=== PATIENT | male | born 1970 | race Caucasian/White ===

== ENCOUNTER 2023-05-11 08:30 | Outpatient (AMB) | payer OTHER, SELFPAY ==
--- NOTE | 2023-05-11 08:34 | MHC.OFFVISWM ---
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 TBWL is 79 lb sor 24.9%.Pt has [employer] insurance which is not accepted by [facility] and Dr Monson approved patient having follow up care. No nausea, emesis or reflux. Float Builder is Dr Kennedy at [facility], next appt May 25, 2023 Works various shifts 4d/ week. Alternates between night and day shifts. Average sleep per night is 6-8 hours. Meal plan: 9am - Isopure - 20 grams with PB powder (9 grams) with water, 16 oz 20 minutes 12 - 1pm - Oikos yogurt AND Quest bar 5 pm - 5 - chicken wings with skin air fired no sauce, vegetables daily 5-6 oz. water after food If gets hungry has 4 oz unsalted peanuts or trail mix No ETOH fro 6 months, no tobacco or marijuana Exercise - has a home gym - cardio 3d/week. Treadmill - ? speed, incline 8, ? calories over 30 - [address] - 4-5 d/ week. UE - 45 lbs - 135 lbs, Abds - crunches and twists, LE - 120 lbs. 6-7 reps 4 sets. [facility] Medical History (Updated 05/11/23 @ 08:59 by Summer Bhakta PA-C) V tach Assessment & Plan Assessment & Plan (1) S/P laparoscopic sleeve gastrectomy: Comment: 2022,[facility] Code(s): Z98.84 - Bariatric surgery status Plan: Pt is 6 months s/p LSG at an outside hospital, lost his insurance. His path report revealed a stomach specimen of only 3.5 x 4.5 x 3cms with irregular staple line. , Dr Britton wants to schedule EGD to evaluate his stomach size. He is eating large quantities of food at meals with minimal restriction. We discussed that we will decrease his portion sizes to have 100 gram protein per day. Studies form October 2022: ECG - NSR, possible LAD, borderline CBC, BMP, Pt/INR normal ranges CXR - NAD New meal plan: 9am - Isopure with PB powder and 12 oz water - over one hour 12 pm - Yogurt OR BAR 3pm- another shake 6pm- 4 oz (8 forks) of lean protein and 6 forks of vegetable New Exercise plan- He should increase his cardio and change his weight routien to burn more fat and conditioning. cardio - 4d/week - 500 calories. Treadmill - 3.0, 2-[address] - 3d/week - 15reps , 3 sets of each- decrease weight by 30%. Pt will text me weekly weights and progress. He will text me in a few days to discuss the plan we created and whether he needs any changes. Dorothy notified to schedule EGD Patient is still obese and is not considered stable at this time. I spent 55 minutes in total speaking with the patient via video conference counseling , reviewing records and charting in patients chart. . (2) A-fib: Code(s): I48.91 - Unspecified atrial fibrillation Plan: stable on metoprolol (3) HTN (hypertension), benign: Code(s): I10 - Essential (primary) hypertension Plan: will follow up with compensation coordinator in 3 weeks. (4) Obesity: Code(s): E66.9 - Obesity, unspecified Plan: weightloss Orders: Orders Insulin Today E66.9 - Obesity, unspecified, Z98.84 - Bariatric surgery status Hemoglobin A1c Today E66.9 - Obesity, unspecified, Z98.84 - Bariatric surgery status Lipid Panel Today E66.9 - Obesity, unspecified, Z98.84 - Bariatric surgery status Comprehensive Met. Panel Today E66.9 - Obesity, unspecified, Z98.84 - Bariatric surgery status Zinc Today E66.9 - Obesity, unspecified, Z98.84 - Bariatric surgery status C Reactive Protein Today E66.9 - Obesity, unspecified, Z98.84 - Bariatric surgery status Vitamin B1 Today E66.9 - Obesity, unspecified, Z98.84 - Bariatric surgery status Vitamin A Today E66.9 - Obesity, unspecified, Z98.84 - Bariatric surgery status TSH reflex Free T4 Today E66.9 - Obesity, unspecified, Z98.84 - Bariatric surgery status Ferritin Today E66.9 - Obesity, unspecified, Z98.84 - Bariatric surgery status Vitamin D 25-OH Total Today E66.9 - Obesity, unspecified, Z98.84 - Bariatric surgery status Complete Blood Count Auto Diff Today E66.9 - Obesity, unspecified, Z98.84 - Bariatric surgery status IRON PROFILE Today E66.9 - Obesity, unspecified, Z98.84 - Bariatric surgery status Vitamin B12 and Folate Today E66.9 - Obesity, unspecified, Z98.84 - Bariatric surgery status Referrals Behavioral Health Referral E66.9 - Obesity, unspecified, Z98.84 - Bariatric surgery status Nutrition/Dietitian Referral E66.9 - Obesity, unspecified, Z98.84 - Bariatric surgery status Coding Level of Care Code Tele New Pt Level 5 (20374) Diagnoses S/P laparoscopic sleeve gastrectomy Z98.84 A-fib I48.91 HTN (hypertension), benign I10 Obesity E66.9
[2023-05-11 08:35] VITALS: BMI 34.1
== END 2023-05-11 09:21 | disposition home or self-care (01) ==
LOC: HO.HBS 09:15
PROVIDERS: Visit Provider Physician Assistant
DX: E66.9 Obesity, unspecified (principal); Z68.34 Body mass index [BMI] 34.0-34.9, adult; Z90.3 Acquired absence of stomach [part of]; Z98.84 Bariatric surgery status
CPT/HCPCS: 99204

== ENCOUNTER 2023-05-11 08:30 | Outpatient (REF) | payer OTHER, SELFPAY ==
[2023-05-11 11:09] LABS: MANUAL DIFF FLAG NO
[2023-05-11 11:49] LABS: Basophils Absolute Auto 0.1 X10*3/uL (0.0-0.2); Basophils Percent Auto 0.9 % (0-2); Eosinophils Absolute Auto 0.2 X10*3/uL (0.0-0.4); Eosinophils Percent Auto 3.6 % (0-4); Hemoglobin 14.1 g/dl (14.0-18.0); Imm Gran Abs Auto 0.01 X10*3/uL (0.00-0.03); Imm Gran Pct Auto 0.2 % (0.0-0.4); Lymphocytes Absolute Auto 1.8 X10*3/uL (1.2-4.9); Lymphocytes Percent Auto 27.9 % (20-40); Mean Corpuscular Hemoglobin 23.8 pg (27.0-33.0); Mean Corpuscular Volume 79.3 fL (80.0-98.0); Mean Platelet Volume 10.4 fL (9.4-12.4); Monocytes Absolute Auto 0.5 X10*3/uL (0.1-1.2); Monocytes Percent Auto 7.2 % (2-11); Neutrophils Absolute Auto 3.9 x10*3/uL (2.0-8.3); Neutrophils Percent Auto 60.2 % (45-73); Platelet Count 319 X10*3/uL (160-400); Red Blood Count 5.93 X10*6/uL (4.60-5.80); Red Cell Distribution Width 14.5 % (11.0-16.0); White Blood Count 6.4 X10*3/uL (4.8-10.8)
[2023-05-11 12:09] LABS: Estimated Average Glucose 82 mg/dL; Hemoglobin A1c % 4.5 % (<6.0)
[2023-05-11 12:34] LABS: Folate 4.1 ng/mL (> or = 4.0); Vitamin B12 450 pg/mL (200-900)
[2023-05-11 12:46] LABS: Alanine Aminotransferase 19 U/L (0-40); Albumin Level 4.1 g/dL (3.5-5.0); Alkaline Phosphatase 149 U/L (39-117); Anion Gap 11 (12-20); Aspartate Amino Transferase 20 U/L (5-37); Blood Urea Nitrogen 20 mg/dL (9-16); C Reactive Protein 0.18 mg/dL (< or = 0.50); Calcium 9.3 mg/dL (8.4-10.2); Carbon Dioxide 30 mmol/L (22-29); Chloride 105 mmol/L (96-108); Cholesterol 149 mg/dL (<200); Estimated Glomerular Filt Rate > 60; Glucose Random 96 mg/dL (60-115); HDL Cholesterol 55 mg/dL (>40); Iron 145 mcg/dL (45-160); LDL Cholesterol Calculated 75 mg/dL (<100); Percent Iron Saturation 63 % (15-50); Potassium 4.3 mmol/L (3.3-5.1); Sodium 142 mmol/L (135-145); Total Iron Binding Capacity 231 mcg/dL (228-428); Total Protein 7.4 g/dL (6.5-8.0); Triglycerides 99 mg/dL (<150); Unsaturated Iron Binding 86 ug/dL
[2023-05-11 12:50] LABS: Ferritin 149 ng/mL (20-250); Insulin 5 uU/mL (2-29); TSH reflex Free T4 1.44 uIU/mL (0.32-4.0); Vitamin D 25-OH Total 29.8 ng/mL (>30)
[2023-05-14 00:33] LABS: Zinc 79 mcg/dL (60-130)
[2023-05-14 01:49] LABS: Vitamin A 32 mcg/dL (38-98)
[2023-05-16 15:34] LABS: Vitamin B1 <6 nmol/L (8-30)
== END 2023-05-11 08:31 | disposition home or self-care (01) ==
LOC: HO.LAB 08:30
PROVIDERS: Visit Provider Physician Assistant
DX: E66.9 Obesity, unspecified (principal); Z98.84 Bariatric surgery status; I48.91 Unspecified atrial fibrillation; I10 Essential (primary) hypertension
CPT/HCPCS: 36415; 80053; 80061; 82306; 82607; 82728; 82746; 83036; 83525; 83540; 84425; 84443; 84590; 84630; 85025; 86140

== ENCOUNTER 2023-05-27 06:41 | Day surgery (SDC) | payer OTHER, SELFPAY ==
--- NOTE | 2023-05-23 19:57 | MHC.SHP ---
Pre-Procedural Eval Section A - 24 Hr Update-Section A only Date of Service: 05/27/23 Section B - Complete if H&P > 30 days Chief Complaint: Bariatric surgery status Details of Present Illness: Inadequate satiety and short pathology specimen Relevant Family History (Specify if Yes): No Relevant Social History: None Present Medications: None Medical History: No relevant PMH History of Previous Operations: No relevant previous surgery Allergies: Allergies Allergy/AdvReac Type Severity Reaction Status Date / Time No Known Allergies Allergy Verified 05/11/23 08:42 Review of Systems Sugical H&P ROS: Negative: Constitution, Cardiovascular, Respiratory, Neurological, Psychiatric, Hem-Onc, Allergic/Immunologic, Gastrointestinal, Genitourinary, Musculoskeletal, Integumentary, Endocrine and Eyes/Ears/Nose/Throat Exam Surgical H&P Exam: Normal: HEENT, Normal: Heart, Normal: Lungs, Normal: Extremities, Normal: Abdomen, Normal: Skin and Normal: Neurological Plan Diagnosis/Plan: Unchanged (EGD to assess anatomy of the sleeve. Risks and complications of bleeding or perforation were discussed with the patient.) I have reviewed the history and physical and performed a pertinent physical examination on my patient. No changes have occurred unless specified. Time Spent With Patient Time: Total time managing care of this patient today ____ minutes.
[2023-05-25 07:56] VITALS: BMI 34.1
--- NOTE | 2023-05-26 08:53 | HO.ANESPROP2 ---
Documented by User: Yolie Mendoza NP 05/26/23 14:19 HPI - Anesthesia Eval Consult details Narrative: 52yo M for Upper Endoscopy s/p gastric sleeve 11/2022 at [facility] Per bariatric provider note, follows [facility] cardiology for afib and pt was scheduled to see sales enablement consultant 05/25/23. No cardiac office visits in [facility] medical records and unable to reach patient to confirm sales enablement consultant. No OAC in external med list. [facility] Active Problems Active Problems: All Active Problems (Updated 05/11/23 @ 08:59 by Summer Bhakta PA-C) Obesity (Acute) HTN (hypertension), benign (Acute) Cardiac abnormality (Acute) A-fib (Acute) History of left knee replacement (Acute) History of knee replacement (Acute) S/P laparoscopic sleeve gastrectomy (Acute) Past Medical History Medical History (Updated 05/27/23 @ 07:21 by Nargis Mcbride RN) History of cardioversion HTN (hypertension), benign A-fib V tach Surgical History Surgical History (Updated 05/27/23 @ 07:21 by Nargis Mcbride RN) Hx of total hip arthroplasty S/P laparoscopic sleeve gastrectomy Social History Social History Patient Tobacco Use Status: Never used Tobacco Are you DNR?: No Advance Directives: No Advance Directives Information Provided: Yes Recently lost weight without trying: No Nutrition Risks: No Nutritional Risk Meds Allergies Allergy/AdvReac Type Severity Reaction Status Date / Time No Known Allergies Allergy Verified 05/11/23 08:42 Home Medications Medication Instructions Recorded Confirmed Last Taken Type magnesium 200 mg tablet 400 mg PO DAILY 05/11/23 05/11/23 Unknown History metoprolol succinate 50 mg 50 mg PO DAILY 05/11/23 05/11/23 Unknown History tablet,extended release 24 hr ggkttmyq-eryfaxen-xrqi 45 mg-folic cap PO 05/11/23 05/11/23 Unknown History acid 800 mcg-vit K 120 mcg capsule (Bariatric Multivitamins) Exam Height,Weight and Vital Signs: Height 5 ft 10 in Weight 107.955 kg Pertinent Lab Results Pertinent Lab Results: Laboratory Tests 05/11/23 11:07 WBC 6.4 Hgb 14.1 Hct 47.0 Plt Count 319 Sodium 142 Potassium 4.3 Chloride 105 Carbon Dioxide 30 H BUN 20 H Creatinine 1.12 Assessment and Plan Assessment Anesthesia Assessment: Chart Reviewed Documented by User: Skyler Carpio MD 05/27/23 07:22 PMFSH Past Medical History Medical History (Updated 05/27/23 @ 07:21 by Nargis Mcbride RN) History of cardioversion HTN (hypertension), benign A-fib V tach Family History Family history of problems with anesthesia: No Surgical History Surgical History (Updated 05/27/23 @ 07:21 by Nargis Mcbride RN) Hx of total hip arthroplasty S/P laparoscopic sleeve gastrectomy History of Problems with Anesthesia: No Social History Social History Patient Tobacco Use Status: Never used Tobacco Are you DNR?: No Advance Directives: No Advance Directives Information Provided: Yes Recently lost weight without trying: No Nutrition Risks: No Nutritional Risk Meds Allergies Allergy/AdvReac Type Severity Reaction Status Date / Time No Known Allergies Allergy Verified 05/11/23 08:42 Home Medications Medication Instructions Recorded Confirmed Last Taken Type magnesium 200 mg tablet 400 mg PO DAILY 05/11/23 05/11/23 Unknown History metoprolol succinate 50 mg 50 mg PO DAILY 05/11/23 05/11/23 Unknown History tablet,extended release 24 hr giddjzej-atxvffut-xykw 45 mg-folic cap PO 05/11/23 05/11/23 Unknown History acid 800 mcg-vit K 120 mcg capsule (Bariatric Multivitamins) Exam Airway Mallampati Class: III TM Dist: >3cm Neck ROM: Full Assessment and Plan Assessment Anesthesia Assessment: Anesthesia Plan Discussed Final Anesthetic Review Family History of Problems with Anesthesia: No History of Problems with Anesthesia: No NPO: Yes ASA Class: III Final Preanesthetic Review: No Changes in Pt Med Stat, Meds/Allgs Chart Reviewed, Consent Obtained/Reviewed and Anes Risks/Benef Reviewed Patient Risk: Intermediate Procedure Risk: Low Anesthetic Plan Anesthetic Plan: TIVA Disposition: Standard PACU
[2023-05-27 07:01] VITALS: BP 147/86; PULSE 59; RESP 18; TEMP 36.1; O2SAT 98; BMI 33.7
[2023-05-27] MEDS: Lactated Ringers 1,000 ML 100 ML IVCONT (07:25)
--- NOTE | 2023-05-27 08:02 | P.BOP_ITS ---
Brief Operative Note Date of Service: 05/27/23 Pre-op diagnosis: Inadequate satiety and short pathology specimen Post-op diagnosis: same Procedure: PROCEDURE DATE: 05/27/2023 PREOPERATIVE DIAGNOSIS: Inadequate satiety, s/p sleeve gastrectomy POSTOPERATIVE DIAGNOSIS: ?Same as above. 1) esophagitis, 2) larger caliber sleeve PROCEDURE: Bmovjxte-ucxlce-uyfdxzaudaau with biopsies Surgeon: ?Ady Monson M.D.. Ph.D. Award Machine Operator: None ? Anesthesia: IV sedation Estimated blood loss: ?Minimal FINDINGS AND PROCEDURE: ? OPERATIVE INDICATIONS: ?The patient is a 52 year old male who underwent a Robotic sleeve gastrectomy to [facility]. The patient has asked to follow up here because his insurance is no longer accepted at [facility]. On initial evaluation we noted that he can eat a significant amount of food and the pathology specimen from the sleeve gastectomy was extremely small. Based on this information I recommended an upper endoscopy to evaluate the patient's symptoms. Risks and complications of the surgery were discussed with the patient in advance particularly the possibility of perforation or bleeding that may require surgical intervention. The patient understood the risks and was in agreement with the plan. ? PROCEDURE: After informed consent was obtained by the patient, the patient was ?transferred to the Operating Room and was placed in the supine position.? After successful induction of IV sedation, a mouth block was inserted and the patient was placed in the left lateral decubitus position. An upper endoscopy was performed next, the oropharynx and esophagus appeared within the normal limits. There was no hiatal hernia. The z-line was irregular with tongues of gastric mucosa protruding into the esophagus in less than 25% circumference. Two biopsies were obtained from the GE junction. The sleeve was entered and it appeared to be of normal size. There was no gastritis. There was no stricture or ulcer. No significant bleeding was noted from any of the biopsy sites. The scope was then advanced into the duodenum which appeared to be normal as well. At that point the duodenum ?and the sleeve were decompressed and the scope was withdrawn from the patient's mouth. The patient extubated and was transferred in stable condition to the Recovery Room for further care. I was present and performed all steps of the procedure. There were no residents to assist with this case. Ady Monson M.D., Ph.D. Surgeon: Tu Monson MD Anesthesia: MAC Was an Award Machine Operator used for this Procedure?: No Estimated blood loss (mL): 0 IV fluids (mL): 400 Urine output (mL): 0 (No Tracy to record output) Pathology: other (1) antrum x1, 2) proximal sleeve/gastric fundus x1, 3) EGJ x2, 4) distal esophagus x2) Condition: stable Disposition: PACU
[2023-05-27 08:38] VITALS: BP 115/79; PULSE 60; RESP 16; TEMP 36.3; O2SAT 98
[2023-05-27 08:53] VITALS: BP 129/80; PULSE 59; RESP 16; TEMP 36.3; O2SAT 98
== END 2023-05-27 09:51 | disposition home or self-care (01) ==
PROVIDERS: Visit Provider Surgery
PROC: 0DJ08ZZ Inspection of Upper Intestinal Tract, Via Natural or Artificial Opening Endoscopic (ICD-10-PCS; CPT 43235; principal; 2023-05-27 08:00)
DX: K95.89 Other complications of other bariatric procedure (principal); R68.81 Early satiety; K20.90 Esophagitis, unspecified without bleeding; K22.89 Other specified disease of esophagus; Z98.84 Bariatric surgery status; E66.9 Obesity, unspecified; Z68.34 Body mass index [BMI] 34.0-34.9, adult; I10 Essential (primary) hypertension; I47.20 Ventricular tachycardia, unspecified; I48.91 Unspecified atrial fibrillation; Z79.899 Other long term (current) drug therapy
CPT/HCPCS: 43239; 88305; 88313; 88342; J1596; J2704

== ENCOUNTER → 2023-05-27 06:41 | Outpatient (BNV) | payer OTHER, SELFPAY | PROVIDERS: Visit Provider Surgery | DX: R63.8 Other symptoms and signs concerning food and fluid intake (principal); Z90.3 Acquired absence of stomach [part of]; Z98.84 Bariatric surgery status; K29.70 Gastritis, unspecified, without bleeding | CPT/HCPCS: 43239 ==

== ENCOUNTER 2023-06-25 09:50 | Outpatient (AMB) | payer OTHER, SELFPAY ==
--- NOTE | 2023-06-25 09:57 | A.OFFVIS_ITS ---
Intake VS Expanded 06/25/23 10:17 BP 143/84 H Blood Pressure Location Rt brachial Blood Pressure Position Sitting Pulse 73 Pulse Source Pulse Oximeter Temp 96.3 F L Temperature Source Tympanic Pulse Oximetry 95 Oxygen Delivery Method Room Air Height 5 ft 10 in Weight 225 lb 12.8 oz BMI 32.4 Body Fat % 26.5 Body Fat Mass 120.4 Fat Free Mass 166.0 Visceral Fat Rating 14.0 Body Water % 53.3 Body Water Mass 120.4 Muscle Mass/Score 157.8 Basal Metabolic Rate/Score 2,223 Intake Visit Reasons: (OV) PO LSG 11/20/22 Allergies No Known Allergies Allergy (Verified 06/25/23 10:06) HPI HPI Comments History of Present Illness Details Post op follow up. 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 Has new insurance not accepted by [facility]. Dr Britton approved him coming to [facility] for post op care. Now 6+ months post op, TBWL since starting with is 12.2 lbs or 5%. He weighed 238 lbs at his first appt with . Meal plan: work varies form day to night shifts. Need 90 grams Breakfast - shake - Isopure 20 gram , PB fit, banana, water = 29 grams Lunch - Oikos = 15 grams Dinner - 8 forks total of protein and vegetable second shake - Isopure of PB fit - 29 grams Exercise - gym 4-5 d/week - prefers weight to cardio. EGD by Dr Britton May 2023: An upper endoscopy was performed next, the oropharynx and esophagus appeared within the normal limits. There was no hiatal hernia. The z-line was irregular with tongues of gastric mucosa protruding into the esophagus in less than 25% circumference. Two biopsies were obtained from the GE junction. The sleeve was entered and it appeared to be of normal size. There was no gastritis. There was no stricture or ulcer. No significant bleeding was noted from any of the biopsy sites. The scope was then advanced into the duodenum which appeared to be normal as well. At that point the duodenum ?and the sleeve were decompressed and the scope was withdrawn from the patient's mouth. Pathology results: Diagnosis A. Stomach, antrum, biopsy: Antral-type mucosa with mild chronic inactive inflammation; no Helicobacter organisms seen. B. GE junction, biopsy: - Cardiofundic-type mucosa with moderate chronic active inflammation; no intestinal metaplasia seen. - Active esophagitis (maximum eosinophil count 6 per high powered field). Patient denies any reflux or pain symptoms. Is ending his pantoprazole prescription now. Post op complications: none TEDDY: resolved DM: never HTN: still on meds Hyperlipidemia: none GERD: 0 PFSH Medical History (Updated 05/27/23 @ 07:21 by Nargis Mcbride, RN) History of cardioversion HTN (hypertension), benign A-fib V tach Surgical History (Updated 05/27/23 @ 07:21 by Nargis Mcbride RN) Hx of total hip arthroplasty S/P laparoscopic sleeve gastrectomy Family History (Updated 06/25/23 @ 10:04 by Summer Bhakta PA-C) Other S/P laparoscopic sleeve gastrectomy Social History Patient Tobacco Use Status: Never used Tobacco Physical Exam GI Inspection: Yes incision (all completely healed) Assessment & Plan Assessment & Plan (1) Obesity: Code(s): E66.9 - Obesity, unspecified Plan: 6 months s/p LSG at [facility]. EGD done due to minimal restriction and deemed normal by Dr Britton - kinza with esophagitis and mild chronic gastritis. Pt is asymptomatic, ending PPI now. No further GI symtoms since starting our meal plan. No furhter treatemtn needed. Goal weight is 175 lbs. Will continue with his present meal plan - dinner of 3oz (6 forks ) protien and up to 3 oz vegetables Will continue his exercise program. Post op labs reveiwed. Will keep in contact with his assistant professor sculpture about HTMN meds. Next appt 6 weeks with PA Patient is obese and is not considered stable at this time. I spent 30minutes in total with patient reviewing/updating records, examining the patient and counseling the patient on weight management as detailed above. Medications: New vitamin A palmitate 3,000 mcg PO DAILY 90 caps 2RF exipfofykwpx-rlr-phzw-FA-vit K 45 mg iron- 800 mcg-120 mcg (Bariatric Multivitamins) 1 cap PO DAILY 90 caps 0RF Coding Level of Care Code Est Pt Level 4 (98766) Diagnoses Obesity E66.9
[2023-06-25 10:17] VITALS: BP 143/84; PULSE 73; TEMP 35.7; O2SAT 95; BMI 32.4
== END 2023-06-25 10:32 | disposition home or self-care (01) ==
PROVIDERS: Visit Provider Physician Assistant
DX: E66.9 Obesity, unspecified (principal)
CPT/HCPCS: 99214

== ENCOUNTER → 2023-06-25 09:50 | Outpatient (BNVA) | payer OTHER, SELFPAY | PROVIDERS: Visit Provider Physician Assistant ==

== ENCOUNTER 2023-08-31 11:29 | Outpatient (AMB) | payer OTHER, SELFPAY ==
--- NOTE | 2023-08-31 11:38 | A.OFFVIS_ITS ---
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 Has new insurance not accepted by [facility]. Dr Britton approved him coming to [facility] for post op care. Now 9 months post op. He weighed 238 lbs at his first appt with us. Weight today is 210 0.8 lb with a BMI of 30.2. States his goal is weight loss and maintain muscle mass Chemistry Technologist is Dr Kennedy at [facility], next appt May 25, 2023, takes Metoprolol for hx AF. BP has been good. Dose just decr from 50 mg daily to 25 mg daily. Meal plan: work varies form day to night shifts. Need 90 grams Breakfast - shake - Isopure 25 gram , PB fit, 9 gm, banana, water = 34 grams, adding branch chain AA and creatine Lunch - Oikos = 15 grams Dinner - 8 forks total of protein and 8 forks vegetable second shake - Isopure of PB fit - 29 grams (1-2 x per week), or Protein water 20 gm (2-3 x per week) Drinking 60-80 oz fluid daily Exercise - gym 4 d/week - prefers weight to cardio. EGD by Dr Britton May 2023: An upper endoscopy was performed, the oropharynx and esophagus appeared within the normal limits. There was no hiatal hernia. The z-line was irregular with tongues of gastric mucosa protruding into the esophagus in less than 25% circumference. Two biopsies were obtained from the GE junction. The sleeve was entered and it appeared to be of normal size. There was no gastritis. There was no stricture or ulcer. No significant bleeding was noted from any of the biopsy sites. The scope was then advanced into the duodenum which appeared to be normal as well. At that point the duodenum ?and the sleeve were decompressed and the scope was withdrawn from the patient's mouth. Pathology results: Diagnosis A. Stomach, antrum, biopsy: Antral-type mucosa with mild chronic inactive inflammation; no Helicobacter organisms seen. B. GE junction, biopsy: - Cardiofundic-type mucosa with moderate chronic active inflammation; no intestinal metaplasiaseen. - Active esophagitis (maximum eosinophil count 6 per high powered field). [facility] Medical History History of cardioversion HTN (hypertension), benign A-fib V tach Surgical History (Updated 08/31/23 @ 12:11 by DEANA Nam) S/P laparoscopic sleeve gastrectomy Hx of total hip arthroplasty Family History Other S/P laparoscopic sleeve gastrectomy Social History Alcohol intake: current Alcohol intake frequency: holidays/special occasions only Patient Tobacco Use Status: Never used Tobacco Physical Exam Const General: healthy appearing and no acute distress Resp Effort & Inspection: normal respiratory effort Auscultation: clear to auscultation bilaterally Cardio Rate: regular rate Rhythm: regular rhythm GI Auscultation: normal bowel sounds Extrem General: Yes normal to inspection Assessment & Plan Assessment & Plan (1) S/P laparoscopic sleeve gastrectomy: Comment: 2022,[facility] Code(s): Z98.84 - Bariatric surgery status Category: Surgical Plan: Change meal plan: Breakfast - shake - Isopure 25 gram 1 scoop in 10 oz of water Lunch - Oikos = 15 grams Dinner - 8 forks total of protein and 8 forks vegetable second shake - Isopure half scoop in 8 oz of water Goal is to add cardio burning 350 calories per day. We will have him return to the office in approximately 6 weeks with an expected 10 lb weight loss. He will by the [employer] body composition scale. Text weekly with weight measurements. Text with any questions or concerns.
[2023-08-31 11:47] VITALS: BP 136/73; PULSE 60; TEMP 36.4; O2SAT 98; BMI 30.2
== END 2023-08-31 12:13 | disposition home or self-care (01) ==
PROVIDERS: Visit Provider Physician Assistant Surgical
DX: E66.9 Obesity, unspecified (principal); Z68.30 Body mass index [BMI] 30.0-30.9, adult; Z90.3 Acquired absence of stomach [part of]; Z98.84 Bariatric surgery status
CPT/HCPCS: 99213

== ENCOUNTER → 2023-08-31 11:29 | Outpatient (BNVA) | payer OTHER, SELFPAY | PROVIDERS: Visit Provider Physician Assistant Surgical ==

== ENCOUNTER 2023-11-03 14:03 | Outpatient (AMB) | payer OTHER, SELFPAY ==
--- NOTE | 2023-11-03 08:11 | A.OFFVIS_ITS ---
VS Expanded 11/03/23 08:12 Height 5 ft 10 in Weight 200 lb 12.8 oz BMI 28.8 Intake Visit Reasons: (tV) PO LSG 11/20/22 Allergies No Known Allergies Allergy (Verified 08/31/23 11:41) HPI Comments Details: Post op follow up. 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 Has new insurance not accepted by [facility]. Dr Britton approved him coming to [facility] for post op care. Now 9 months post op. He weighed 238 lbs at his first appt with us. Weight today is 200 0.8 lb with a BMI of 28.8. 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 BP has been good. Dose just decr from 50 mg daily to 25 mg daily. Meal plan: work varies form day to night shifts. Need 90 grams Breakfast - shake - Isopure 25 gram 1 scoop in 10 oz of water Lunch - [place] = 15 grams Dinner - 8 forks total of protein and 8 forks vegetable second shake - Isopure half scoop in 8 oz of water Drinking 60-80 oz fluid daily Exercise - gym 2-3 d/week - weights and 15-20 min treadmill PFSH Medical History History of cardioversion HTN (hypertension), benign A-fib V tach Surgical History (Updated 11/03/23 @ 14:00 by DEANA Nam) S/P laparoscopic sleeve gastrectomy Hx of total hip arthroplasty Family History Other S/P laparoscopic sleeve gastrectomy Social History Alcohol intake: current Alcohol intake frequency: holidays/special occasions only Patient Tobacco Use Status: Never used Tobacco Physical Exam Vital Signs: BMI result Body Mass Index 28.8 Telehealth Telehealth Telehealth Platform: Telephone Location of provider rendering services: practice address Location of patient: address on file Patient Identification confirmed using: Name, : Yes Telehealth method: voice only Patient verbally consented to treatment: Yes Patient verbally consented to billing insurance company: Yes Patient informed of any privacy concerns related to visit: Yes Minutes spent on Phone/Video with Pt.: 12 Assessment & Plan Assessment & Plan (1) S/P laparoscopic sleeve gastrectomy: Comment: November 2022Melodie Code(s): Z98.84 - Bariatric surgery status Category: Surgical Plan: Recommend increasing exercise 4-5 days per week, 400 calories per session. Continue current meal plan. Text and communicate weekly. He is satisfied with his progress and current meal plan. Return to clinic 1 month
[2023-11-03 08:12] VITALS: BMI 28.8
== END 2023-11-03 14:12 | disposition home or self-care (01) ==
LOC: HO.HBS 14:03
PROVIDERS: Visit Provider Physician Assistant Surgical
DX: E66.3 Overweight (principal); Z68.28 Body mass index [BMI] 28.0-28.9, adult; Z90.3 Acquired absence of stomach [part of]; Z98.84 Bariatric surgery status
CPT/HCPCS: 99213

== ENCOUNTER → 2023-11-03 14:03 | Outpatient (BNVA) | payer OTHER, SELFPAY | PROVIDERS: Visit Provider Physician Assistant Surgical | DX: Z98.84 Bariatric surgery status (principal) ==

== ENCOUNTER 2024-01-18 15:26 | Outpatient (AMB) | payer OTHER, SELFPAY ==
[2024-01-18 14:50] VITALS: BMI 29.1
--- NOTE | 2024-01-18 14:50 | MHC.OFFVISWM ---
VS Expanded 01/18/24 14:50 Height 5 ft 10 in Weight 203 lb 2 oz BMI 29.1 Intake Visit Reasons: (tV) PO LSG 11/20/22 Allergies No Known Allergies Allergy (Verified 08/31/23 11:41) HPI Comments Details: Post op follow up. 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 Has new insurance not accepted by [facility]. Dr Britton approved him coming to [facility] for post op care. Now 9 months post op. He weighed 238 lbs at his first appt with us. Weight today is 203.2 lb with a BMI of 29.1. 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 BP has been good. Dose just decr from 50 mg daily to 25 mg daily. Meal plan: work varies form day to night shifts. Need 90 grams Breakfast - shake - Isopure 25 gram 1 scoop in 10 oz of water Lunch - chicken salad or egg salad Dinner - 8 forks total of protein and 8 forks vegetable second shake - Isopure half scoop in 8 oz of water Drinking 60-80 oz fluid daily Exercise just started last week, weights and then cardio, (treadmill) speed 3 incl 3, 300 darron [facility] Medical History History of cardioversion HTN (hypertension), benign A-fib V tach Surgical History (Updated 11/03/23 @ 14:00 by DEANA Nam) S/P laparoscopic sleeve gastrectomy Hx of total hip arthroplasty Family History Other S/P laparoscopic sleeve gastrectomy Social History Alcohol intake: current Alcohol intake frequency: holidays/special occasions only Patient Tobacco Use Status: Never used Tobacco Telehealth Telehealth Telehealth Platform: Telephone Location of provider rendering services: practice address Location of patient: other Patient Identification confirmed using: Name, : Yes Telehealth method: voice only Patient verbally consented to treatment: Yes Patient verbally consented to billing insurance company: Yes Patient informed of any privacy concerns related to visit: Yes Minutes spent on Phone/Video with Pt.: 12 Assessment & Plan Assessment & Plan (1) S/P laparoscopic sleeve gastrectomy: Comment: November 2022Melodie Code(s): Z98.84 - Bariatric surgery status Category: Surgical Plan: Recommend patient continue structured exercise program. Recommend measuring food quantity at lunchtime, and change to 6 forks of protein and 6 of vegetables. Breakfast - shake - Isopure 25 gram 1 scoop in 10 oz of water Lunch - 6 forks total of protein and 6 forks vegetable Dinner - 6 forks total of protein and 6 forks vegetable second shake - Isopure half scoop in 8 oz of water Encouraged to text weekly and with any questions or concerns.
== END 2024-01-18 15:39 | disposition home or self-care (01) ==
LOC: HO.HBS 15:26
PROVIDERS: Visit Provider Physician Assistant Surgical
DX: E66.3 Overweight (principal); Z68.29 Body mass index [BMI] 29.0-29.9, adult; Z90.3 Acquired absence of stomach [part of]; Z98.84 Bariatric surgery status
CPT/HCPCS: 98967

== ENCOUNTER → 2024-01-18 15:26 | Outpatient (BNVA) | payer OTHER, SELFPAY | PROVIDERS: Visit Provider Physician Assistant Surgical ==